=== PATIENT | female | born 1995 | race Hispanic/Latino ===

== ENCOUNTER 2023-10-18 20:20 | Emergency (ER) | payer OTHER | END 2023-10-19 00:14 | disposition home or self-care (01) | LOC: CSHERS 20:20 | DX: O34.81 Maternal care for other abnormalities of pelvic organs, first trimester (principal); N83.202 Unspecified ovarian cyst, left side; Z3A.01 Less than 8 weeks gestation of pregnancy | CPT/HCPCS: 36415; 76817; 84702; 86900; 86901 ==

== ENCOUNTER 2023-10-21 12:41 | Emergency (ER) | payer OTHER ==
[2023-10-21 13:31] LABS: Bilirubin Neg (Negative); Blood, Urine 10 (Negative); Clarity Clear (Clear); Glucose, Urine (Dipstick) Normal (Negative); Ketone, Urine Negative (Negative); Leukocyte 500 (Negative); Nitrite Negative (Negative); Protein, Urine (Dipstick) Negative (Neg-Trace); Specific Gravity, Urine 1.015 (1.005-1.030); Urobilinogen Normal mg/dL (Less than 2)
[2023-10-21 14:36] LABS: CAUTI Indications for Culture Pregnancy
[2023-10-21 14:37] LABS: Bacteria/HPF 2+ HPF (None Seen); Squamous Epithelial 0-3 HPF (0-3)
[2023-10-21 14:39] LABS: Epithelial Cast 0-3 LPF (None Seen); White Blood Cell Cast 0-3 LPF (None Seen)
[2023-10-21 14:40] LABS: Urine Culture Reflex Yes Yes
== END 2023-10-21 14:51 | disposition home or self-care (01) ==
LOC: CSHERS 12:41
DX: O99.891 Other specified diseases and conditions complicating pregnancy (principal); R82.71 Bacteriuria; Z3A.01 Less than 8 weeks gestation of pregnancy
CPT/HCPCS: 36415; 81001; 84702; 87086; 99284